=== PATIENT | male | born 1985 | race Two or more races ===

== ENCOUNTER 2017-07-12 16:46 | Emergency (ER) | payer OTHER ==
[~2017-07-12] VITALS: Ht 175.3 cm; Wt 70.3 kg
--- NOTE | 2017-07-12 18:40 | NUR ---
PT IS IN ROOM #2B. DR SANDERS EVALUATED THE PT.
[2017-07-12] MEDS ORDERED: NEOMY/BACITRA/POLYMYXIN B OINT UD PACKET TP ONE ×2 (19:15→20:00)
--- NOTE | 2017-07-12 19:55 | NUR ---
Patient discharged to home in stable conditon under [employer] custody. Written and verbal after care instructions given. Patient verbalizes understanding of instructions. Walked out of ER with handcuff with [employer]
[2017-07-12 19:56] VITALS: BP 118/72
== END 2017-07-12 19:57 | disposition home or self-care (01) ==
LOC: ER 16:47
DX: M54.5 Low back pain (principal)
CPT/HCPCS: 72131; A4663